=== PATIENT | female | born 2005 | race Two or more races ===

== ENCOUNTER → 2025-05-17 | Outpatient (CLI) | payer OTHER ==
[2025-05-17 17:20] LABS: GLUCOSE CHALLENGE TEST 1 HOUR 91 MG/DL (LESS THAN 140)
[2025-05-17 17:21] LABS: PLATELET COUNT, AUTOMATED 240 10^3/uL (150-450)
[2025-05-17 17:49] LABS: HIV 1&2 SCREEN NEGATIVE (NEGATIVE)
[2025-05-17 17:57] LABS: HEPATITIS C VIRUS ABY INDEX < 0.02 INDEX (<0.8)
[2025-05-17 19:54] LABS: Trichomonas vaginalis (AMP) NOT DETECTED (NEGATIVE)
[2025-05-17 20:18] LABS: GC DNA AMPLIFICATION NEGATIVE (NEGATIVE)
== END ==
LOC: M PLAIMG 14:10
PROVIDERS: ATTEND Advanced Practice Midwife
DX: Z34.02 Encounter for supervision of normal first pregnancy, second trimester (principal)